=== PATIENT | male | born 1955 | race Caucasian/White ===

== ENCOUNTER 2018-08-07 12:46 | Day surgery (SDC) | payer BC ==
[~2018-08-07 12:46] MED LIST: Lidocaine 1% PF 5 ML VIAL ONE; PROPOFOL 200 MG/20 ML VIAL ONE; Succinylcholine Chloride 20 MG/ML 10 ml SYRINGE FS ONE
[2018-08-07] MEDS ORDERED: Oxymetazoline HCl 0.05% ( 15 ML ) ONE ×2 (14:50→16:23)
[2018-08-07] MEDS ORDERED: Bacitracin Zinc Ointment 30 gm TUBE ONE (16:23)
[2018-08-07] MEDS ORDERED: Lidocaine 1% w/Epinephrine 1:100K 20 ML VIAL ONE (16:23)
[2018-08-07] MEDS ORDERED: Fentanyl 100 MCG/2 ML VIAL ONE ×4 (16:41→18:21)
[2018-08-07] MEDS ORDERED: Ferric Subsulfate 8 ML BOT ONE (17:01)
[2018-08-07] MEDS ORDERED: Hydrocodone-Acetamin 15 ML UDCUP ONE (18:58)
--- NOTE | 2018-08-08 09:14 | OP ---
DATE OF PROCEDURE: 08/07/2018 PREOPERATIVE DIAGNOSES: 1. Chronic rhinosinusitis. 2. Nasal septal deviation. 3. Bilateral inferior turbinate hypertrophy. 4. Chronic adenotonsillitis. 5. Adenotonsillar hypertrophy. 6. Uvula hypertrophy. 7. Obstructive sleep apnea. POSTOPERATIVE DIAGNOSES: 1. Chronic rhinosinusitis. 2. Nasal septal deviation. 3. Bilateral inferior turbinate hypertrophy. 4. Chronic adenotonsillitis. 5. Adenotonsillar hypertrophy. 6. Uvula hypertrophy. 7. Obstructive sleep apnea. PROCEDURES PERFORMED: 1. Bilateral endoscopic sinus surgery, total ethmoidectomies. 2. Bilateral endoscopic sinus surgery, maxillary antrostomies. 3. Bilateral endoscopic sinus surgery, frontal sinusotomies. 4. Nasal septoplasty. 5. Bilateral inferior turbinate submucosal resection. 6. Tonsillectomy and adenoidectomy. 7. Uvulectomy. ESTIMATED BLOOD LOSS: 50 mL. COMPLICATIONS: None. ANESTHESIA: GETA. PROCEDURE IN DETAIL: Patient was taken to the operating room and placed supine on the table. General endotracheal anesthesia was obtained by the anesthesia staff. Tube was secured in the left lower lip. Patient was then placed in the beach chair position, and Afrin pledgets were placed in the nasal cavity. Injections of 1% lidocaine with 1:100,000 epinephrine were made into the nasal septum as well as the inferior turbinates. Patient was then prepped and draped in standard surgical fashion for nasal surgery. Following this, the Afrin pledgets were removed. A Lorenzo incision was made on the left nasal septum. Submucoperichondrial dissection was performed. The deviated portions of the septum included portions of the cartilage and the bony septum. These isolated areas were removed using 3 cutting rongeurs. There was noted to be a large dorsal and caudal strut, left intact for support of the nose. The mucoperichondrial flaps were then reapproximated using a 4-0 gut stitch. Any straight pieces of cartilage were crushed prior to this and placed between the mucoperichondrial flaps. Following this, the inferior turbinates were then punctured with a submucosal coblation wand, and submucosal coblations were performed of multiple areas of the inferior portion of the anterior inferior turbinate. Please note that the submucosal microdebrider was used to submucosally resect the anterior and inferior portions of the inferior turbinates bilaterally. Following this, a 0-degree endoscope was advanced into the middle meatus. The middle turbinates were identified and gently medialized with a Soper elevator. Following this, the uncinate process was identified and was anteriorly fractured using a ball-ended probe. The uncinate was then removed using the straight microdebrider bilaterally. Following this, the natural maxillary sinus ostia was identified using the curved microdebrider. Maxillary sinus ostia was widened bilaterally. Following this, the ethmoidal bulla was identified and was punctured on its medial and inferior aspect bilaterally with microdebrider. Using the microdebrider and upbiting Blakesley forceps, the ethmoidal bulla was removed along with the anterior ethmoidal cells. The grand lamella was then identified and was punctured into the posterior ethmoidal cells using a 0-degree microdebrider. Working from posterior to anterior, the ethmoidal cells were opened bilaterally. Following this, using the 45-degree endoscope and a 40-degree microdebrider blade, the frontal recess cells were opened, which exposed the frontal ostia. The frontal ostia was then widened bilaterally using the curved microdebrider. Following this, the nasal cavity was irrigated. Mirapex was placed within the middle meatus. Leyva splints were placed and secured. After consent was obtained, the patient was identified, brought to the operating room, and placed on the operating table in the supine position. General endotracheal anesthesia and intravenous access were obtained and we proceeded with positioning the patient for oropharyngeal surgery. Oropharyngeal exposure was obtained with a Vadim-Arnoldo mouth gag after a head drape was placed and secured with a towel clip. The Vadim-Arnoldo mouth gag was then suspended from the Marquez tray and palatal elevation was achieved with a red rubber catheter. The right tonsil was addressed first. We used a curved Allis to grasp the tonsil and retract it medially as an anterior pillar incision was made. The retrotonsillar fascial plane was then established and blunt dissection was performed with the suction cautery. Blood vessels were anticipated, identified, and cauterized as they were encountered. Ultimately, dissection was carried to the posterior tonsillar pillar mucosa which was incised hemostatically, as well as the base of tongue connection. The tonsil was then passed off as a specimen and bleeding points within the tonsillar bed were cauterized under direct visualization. We subsequently turned our attention to the contralateral side, where using a similar technique, a near identical procedure was performed. Again, the tonsil was grasped and retracted medially with a curved Allis. The retrotonsillar fascial plane was established and while the anterior pillar was retracted medially. The hemostatic blunt dissection of the tonsil with a suction cautery was performed with blood vessels anticipated, identified, and cauterized as they were encountered. Again, dissection continued to the base of tongue and posterior tonsillar pillar mucosa which was incised in a hemostatic fashion. The tonsillar beds were then carefully inspected and bleeding points were identified and cauterized with a suction cautery. After this portion of the procedure, hemostasis was completely obtained. Under direct mirror visualization, we visualized the adenoid pad. Under direct mirror visualization, we removed the bulk of the adenoid tissue with the adenoid curette. We then packed the nasopharynx for an appropriate period of time with Ers-[id number]-[id number] tonsillar sponges. After a period of observation, we removed the pack. Under indirect mirror visualization, we obtained hemostasis and vaporization of residual adenoid tissue with electrocautery. The patient's oral cavity was copiously irrigated with iced saline and subsequently suctioned. After completion of the procedure, the nasal cavity and oropharynx were irrigated and suctioned as were the gastric contents. The patient was then awakened and transferred to the recovery room where the patient remained in stable condition prior to discharge to Day Stay. Following this, the excessive portions of the uvula were then excised using the Bovie electrocautery and hemostasis was obtained. The mucosal edges were reapproximated using a 3-0 chromic gut stitch. The patient tolerated the procedure well. Job ID: [id number]
--- NOTE | 2018-08-09 08:56 | EKG ---
Test Reason : PREOP Blood Pressure : / mmHG Vent. Rate : 078 BPM Atrial Rate : 078 BPM P-R Int : 148 ms QRS Dur : 096 ms QT Int : 392 ms P-R-T Axes : 068 062 060 degrees QTc Int : 446 ms Normal sinus rhythm Normal ECG No previous ECGs available Confirmed by DR. Zeyad KRAMER ([id number]) on 08/09/2018 8:55:42 AM Referred By: VERO Confirmed By:DR. Zeyad KRAMER
== END 2018-08-07 19:45 | disposition home or self-care (01) ==
LOC: SDC 12:46
PROVIDERS: ATTEND Otolaryngology Plastic Surgery within the Head & Neck
PROC: 099R8ZZ Drainage of Left Maxillary Sinus, Via Natural or Artificial Opening Endoscopic (ICD-10-PCS; principal; 2018-08-07)
PROC: 09BL0ZZ Excision of Nasal Turbinate, Open Approach (ICD-10-PCS; principal; 2018-08-07)
PROC: 099T8ZZ Drainage of Left Frontal Sinus, Via Natural or Artificial Opening Endoscopic (ICD-10-PCS; principal; 2018-08-07)
PROC: 09BU8ZZ Excision of Right Ethmoid Sinus, Via Natural or Artificial Opening Endoscopic (ICD-10-PCS; principal; 2018-08-07)
PROC: 09SM0ZZ Reposition Nasal Septum, Open Approach (ICD-10-PCS; principal; 2018-08-07)
PROC: 0CTPXZZ Resection of Tonsils, External Approach (ICD-10-PCS; principal; 2018-08-07)
PROC: 0CBNXZZ Excision of Uvula, External Approach (ICD-10-PCS; principal; 2018-08-07)
PROC: 099Q8ZZ Drainage of Right Maxillary Sinus, Via Natural or Artificial Opening Endoscopic (ICD-10-PCS; principal; 2018-08-07)
PROC: 099S8ZZ Drainage of Right Frontal Sinus, Via Natural or Artificial Opening Endoscopic (ICD-10-PCS; principal; 2018-08-07)
PROC: 0CTQXZZ Resection of Adenoids, External Approach (ICD-10-PCS; principal; 2018-08-07)
PROC: 09BV8ZZ Excision of Left Ethmoid Sinus, Via Natural or Artificial Opening Endoscopic (ICD-10-PCS; principal; 2018-08-07)
DX: J32.8 Other chronic sinusitis (principal); G47.33 Obstructive sleep apnea (adult) (pediatric); J34.2 Deviated nasal septum; J34.3 Hypertrophy of nasal turbinates; K13.79 Other lesions of oral mucosa; Z79.899 Other long term (current) drug therapy
CPT/HCPCS: 88302; 88304; 93005; 93010; J2001; J2704; J3010